=== PATIENT | female | born 1960 | race African-American/Black ===

== ENCOUNTER 2024-05-04 08:25 | Outpatient (CLI) | payer OTHER, SELFPAY ==
--- NOTE | ~2024-05-04 | MR_ITS ---
EXAMINATION: MR lumbar spine wo con DATE: 05/04/2024 09:48 INDICATION: Lumbar radiculopathy TECHNIQUE: Magnetic resonance imaging (MRI) of the lumbar spine was performed without intravenous con trast. Sequences included sagittal T2-weighted FSE, sagittal T2-weighted FS FSE, sagittal T1-weighted FSE, and axial T2-weighted FSE. COMPARISON: None FINDINGS: 3 mm anterolisthesis L5 on S1. Vertebral body heights are normal. Mild to moderate disc height loss a t T12-L1, L4-L5 and L5-S1 and mild disc height loss at T11-T12. There are fibrofatty degenerative end plate changes at each of these levels as well as along the anterior inferior endplates of L2 and L3. Marrow signal is otherwise unremarkable. The conus medullaris terminates at L1-L2. There is normal si gnal in the caudal spinal cord. Paravertebral soft tissues are unremarkable. The following disc level s are specifically discussed: T12-L1: The disc does not extend beyond the endplate margin. There is mild left and moderate right fa cet joint osteoarthritis. There is no neural foraminal stenosis. There is no central canal stenosis. L1-L2: The disc does not extend beyond the endplate margin. There is moderate bilateral facet joint o steoarthritis. There is minimal bilateral neural foraminal stenosis. There is no central canal stenos is. L2-L3: The disc does not extend beyond the endplate margin. There is moderate bilateral facet joint o steoarthritis. There is mild bilateral neural foraminal stenosis. There is no central canal stenosis. L3-L4: Disc is mildly bulging. There is moderate bilateral facet joint osteoarthritis. There is mild right and mild to moderate left neural foraminal stenosis. There is mild central canal stenosis. L4-L5: Disc is bulging. There is severe bilateral facet joint osteoarthritis. There is moderate left and moderate to severe right neural foraminal stenosis. There is mild central canal stenosis. L5-S1: Disc is bulging with annular fissure. There is severe left and moderate to severe right facet joint osteoarthritis. There is moderate bilateral neural foraminal stenosis. There is mild central ca nal stenosis. IMPRESSION: 1. Mild to moderate lumbar spondylosis. Reviewed, dictated and finalized at location B. LY REQUIREMENTS OFFICER
--- NOTE | ~2024-05-04 | MR_ITS ---
EXAMINATION: MR cervical spine wo con DATE: 05/04/2024 09:36 INDICATION: Cervical radiculopathy. TECHNIQUE: Magnetic resonance imaging (MRI) of the cervical spine was performed without intravenous c ontrast. COMPARISON: None FINDINGS: Alignment is normal. Vertebral body heights are normal. There is mildly decreased disc heig ht at C4-C5, moderately decreased disc height at C5-C6, and severely decreased disc height at C6-C7. The spinal cord signal intensity is normal. The following disc levels are specifically discussed: C2-C3: The disc does not extend beyond the endplate margin. There is mild left uncovertebral joint os teoarthritis. There is mild bilateral facet joint osteoarthritis. There is mild left neural foraminal stenosis. There is no central canal stenosis. C3-C4: There is a central protrusion. There is mild bilateral uncovertebral joint osteoarthritis. The re is severe right facet joint osteoarthritis. There is moderate right and mild left neural foraminal stenosis. There is no central canal stenosis. C4-C5: There is a left central extrusion. There is mild bilateral uncovertebral joint osteoarthritis. There is severe right and moderate left facet joint osteoarthritis. There is mild bilateral neural f oraminal stenosis. There is mild central canal stenosis. C5-C6: The disc is bulging. There is moderate right and severe left uncovertebral joint osteoarthriti s. There is severe bilateral facet joint osteoarthritis. There is mild right and moderate left neural foraminal stenosis. There is mild central canal stenosis. C6-C7: The disc is bulging. There is severe bilateral uncovertebral joint osteoarthritis. There is se patrick bilateral facet joint osteoarthritis. There is moderate bilateral neural foraminal stenosis. The re is mild central canal stenosis. C7-T1: The disc does not extend beyond the endplate margin. There is no uncovertebral joint osteoarth ritis. There is severe bilateral facet joint osteoarthritis. There is mild bilateral neural foraminal stenosis. There is no central canal stenosis. IMPRESSION: 1. Severe cervical spondylosis. Reviewed, dictated and finalized at location A. HANT TAILOR
--- OUTSIDE RECORDS SUMMARY | 2024-05-04 08:51 | XMS_ITS | Patient Health Summary ---
Author Organization [facility] Address [address] [place] [address] Care Team Providers Care Manager Global Name Role Phone Wyatt Ovalle MD Primary Care Provider [phone] [facility],non-owned Affiliates and Associated Physician Practices is amultiple site organization consisting of ambulatory clinics and hospital sitesin [place], [place], [place] and [place]. This disclosure is being madepursuant to the Care Everywhere program and may not contain all information available regarding this patient. Last updated 17.[facility] Allergies No known active allergies Medications * Be aware that medications may not be up to date on this document. Alwaysverify current medications with the patient. 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
--- OUTSIDE RECORDS SUMMARY | 2024-05-04 08:51 | XMS_ITS | Clinical Summary ---
Author Organization [facility] Address [address] [place] [address] Care Team Providers Care Water Ski Assembler Name Role Phone Junito Villalobos MD Unavailable [phone] Kerline Colvin NP Primary Care Provider [phone] Allergies Active Allergy Reactions Criticality Noted Date Comments Ibuprofen Nausea & Vomiting Low 10/20/2023 Medications atorvastatin (LIPITOR) 40 mg tablet Take 1 tablet (40 mg total) by mouth nightly 30 tablet 4 11/22/19 25 Active amLODIPine (NORVASC) 10 mg tablet Take 1 tablet (10 mg total) by mouth daily 30 tablet 4 11/23/19 25 Active olmesartan (BENICAR) 20 mg tablet Take 1 tablet (20 mg total) by mouth daily 30 tablet 4 11/17/19 25 Active aspirin 81 mg enteric coated tablet Take 1 tablet (81 mg total) by mouth daily 30 tablet 11/22/19 25 Active camphor-methyl salicyl-menthoL adhesive patch,medicated Apply topically nightly Active gabapentin (NEURONTIN) 300 mg capsuleIndicati ons:Chronic pain of both knees,Back pain of lumbar region with sciatica Take 1 capsule (300 mg total) by mouth 3 (three) times a day 270 capsule 5 06/21/19 25 Active traMADoL (ULTRAM) 25 mg tabletIndicatio ns:Chronic pain of both knees,Back pain of lumbar region with sciatica Take 1 tablet (25 mg total) by mouth every 8 (eight) hours as needed for pain 30 tablet 5 Active Active Problems Problem Noted Date Diagnosed Date Weakness due to acute cerebrovascular accident ( CVA) 03/29/2024 Assessment & Plan (03/29/2024 1:59 PM ELECTRICIAN SUBSTATION SUPERVISOR): - Chronic, not improving - Continue physical therapy - Continue follow-up with neurology as scheduled Back pain of lumbar region with sciatica 024 Assessment & Plan (03/29/2024 1:58 PM ELECTRICIAN SUBSTATION SUPERVISOR): - See chronic pain of knees plan Assessment & Plan (02/27/2024 4:32 PM ELECTRICIAN SUBSTATION SUPERVISOR): - Chronic, worsening - Obtain lumbar x-ray for further evaluation - Continue tramadol 25 mg every hours p.r.n. - Increase gabapentin to 300 mg t.i.d. - Encouraged use of ice alternating with heat frequently - May use zurq-gbz-otkkeux icy hot or Biofreeze - May add gicq-ryn-mixqpcm Tylenol 1000 mg every 6 hours as needed for pain - Continue with physical therapy - Refer to orthopedics for further evaluation Healthcare maintenance 01/19/2024 Assessment & Plan (01/19/2024 2:15 PM ELECTRICIAN SUBSTATION SUPERVISOR): - Discussed with patient current recommendations for annual screening(s) including pap smear every 3 years starting at age 21 until age 30, then every 5 years from age 30 until 65. Patients no longer need paps after age 65. Recommend annual mammograms starting at age 40. Recommend colon cancer screening with colonoscopy or DNA stool testing such as Cologuard starting at age 45. Bone density for postmenopausal status. Discussed diet, exercise, and importance of maintaining a healthy weight. - Pt declines due vaccinations including influenza, shingles, and Tdap - Labs to be obtained in April Tobacco abuse 01/19/2024 Assessment & Plan (01/19/2024 2:15 PM ELECTRICIAN SUBSTATION SUPERVISOR): - Chronic - Encouraged cessation - Counseled on ways to cut back and advised to call office if would like advice on methods and medications used to help quit smoking. This is a chronic problem and would always recommend reducing amount of smoking in hopes of quitting completely. Quitting smoking is one of the most important thing is you can do for your health. Contact to NOW or www.smokefree.gov for more information. Chronic pain of both knees 01/19/2024 Assessment & Plan (03/29/2024 1:58 PM ELECTRICIAN SUBSTATION SUPERVISOR): - Chronic, worsening - Continue tramadol 25 mg every hours p.r.n. - Continue gabapentin 300 mg t.i.d. - Encouraged use of ice alternating with heat frequently - May use qawr-ibv-wlsrxjz icy hot or Biofreeze - May add pzke-kqo-efywyye Tylenol 1000 mg every 6 hours as needed for pain - Continue with physical therapy - Refer to orthopedics for further evaluation - Patient currently on medical leave from work. Will extend leave paperwork through 07-29-2024. Assessment & Plan (02/27/2024 4:33 PM ELECTRICIAN SUBSTATION SUPERVISOR): - Chronic, worsening - Continue tramadol 25 mg every hours p.r.n. - Increase gabapentin to 300 mg t.i.d. - Encouraged use of ice alternating with heat frequently - May use btqf-hkw-atnujuw icy hot or Biofreeze - May add khlb-ala-szrmoxn Tylenol 1000 mg every 6 hours as needed for pain - Continue with physical therapy - Refer to orthopedics for further evaluation - Patient currently on medical leave from work. [employer] paperwork filled out to extend leave until March 30, 2024. Work excuse note completed and given to patient at visit today. Assessment & Plan (01/19/2024 2:16 PM ELECTRICIAN SUBSTATION SUPERVISOR): - Chronic, stable - Continue PT - Continue Tramadol 50 mg q8h PRN Essential tremor 12/21/2023 Assessment & Plan (03/29/2024 1:57 PM ELECTRICIAN SUBSTATION SUPERVISOR): - Chronic, mild improvement with gabapentin - Continue 300 mg t.i.d. - Continue follow-up with Neurology Assessment & Plan (01/19/2024 2:14 PM ELECTRICIAN SUBSTATION SUPERVISOR): - Chronic, stable - Monitor only for now - Follow up with neurology as needed TIA (transient ischemic attack) 11/21/2023 Assessment & Plan (01/19/2024 2:18 PM ELECTRICIAN SUBSTATION SUPERVISOR): - Improving - Doing well in physical therapy, continue per PT recommendations - Recommend resistance exercises at home as well - Work note provided at visit today - Leave paperwork updated per pt preference, scanned to media and faxed to [employer] Sialadenitis 12/18/2021 Dental caries 12/18/2021 Carpal tunnel syndrome of left wrist 12/03/2021 Assessment & Plan (01/19/2024 2:17 PM ELECTRICIAN SUBSTATION SUPERVISOR): - Chronic, stable - Continue Gabapentin 100 mg nightly. Pt does not want to increase dose due to risk for drowsiness Resolved Problems Problem Noted Date Diagnosed Date Resolved Date Pain and numbness of left upper extremity 12/03/2021 01/19/2024 Bronchitis 04/01/2020 09/17/2021 Encounters Date Type Department Care Team Description 04/20/2024 Telephone [facility] Family Medicine at [address] [address] Kerline Colvin NP 04/16/2024 Telephone [facility] at [address] [phone] Kerline Colvin NP 04/04/2024 Telephone [facility] at [address] [address] Kerline Colvin NP letter for FMLA; Medical Question/Miscellaneous 03/30/2024 Orders Only [facility] at [address] [phone] Kerline Colvin NP Weakness due to acute cerebrovascular accident (CVA) (HCC) (Primary Dx); TIA (transient ischemic attack); Carpal tunnel syndrome of left wrist; Polyneuropathy associated with underlying disease 03/29/2024 2:47 PM ELECTRICIAN SUBSTATION SUPERVISOR - 03/29/2024 11:59 PM ELECTRICIAN SUBSTATION SUPERVISOR Hospital Encounter [facility] [address] [place] [address] Encounter for screening mammogram for malignant neoplasm of breast Discharge Disposition: Discharge to home or self care 03/27/2024 Telephone [facility] at [address] [phone] Remy Allred MD Medical Question/Miscellaneous 03/22/2024 3:30 PM ELECTRICIAN SUBSTATION SUPERVISOR Office Visit [facility] at [address] [phone] Kerline Colvin NP Chronic pain of both knees (Primary Dx); Back pain of lumbar region with sciatica; Essential tremor; Weakness due to acute cerebrovascular accident (CVA) (HCC) 03/05/2024 Telephone [facility] at [address] [address] Remy Allred MD Forms Request; Medical Question/Miscellaneous 02/27/2024 3:32 PM ELECTRICIAN SUBSTATION SUPERVISOR - 02/27/2024 11:59 PM ELECTRICIAN SUBSTATION SUPERVISOR Hospital Encounter [facility] [address] [place] [id number] Back pain of lumbar region with sciatica Discharge Disposition: Discharge to home or self care 02/27/2024 3:00 PM ELECTRICIAN SUBSTATION SUPERVISOR Office Visit [facility] at [address] [phone] Kerline Colvin NP Back pain of lumbar region with sciatica (Primary Dx); Chronic pain of both knees from Last 3 Months Immunizations Immunization Administration Dates Next Due Influenza, Unspecified 11/28/2020,11/29/2019 Surgical History Surgery Date Site/Laterality Comments TOTAL ABDOMINAL HYSTERECTOMY Hysterectomy, total Medical History Medical History Date Comments TIA (transient ischemic attack) 11/21/2023 Family History Medical History Relation Name Comments Hypertension Other Family history of Hypertension; Relation Name Status Comments Other Social History Tobacco Use Types Packs/Day Years Used Date Smoking Tobacco: Every Day Cigarettes Smokeless Tobacco: Never Tobacco Cessation:Ready to Q uit: Not Asked; Counseling Given: Not Answered Alcohol Use Standard Drinks/Week Comments No 0 (1 standard drink = 0.6 oz pur e alcohol) AUDIT-C Answer Date Recorded Q1: How often do you have a drink containing alcohol? Never 03/22/2024 Q2: How many drinks containi ng alcohol do you have on a typical day when you are drinking? Patient does not drink Q3: How often do you have si x or more drinks on one occasion? Never 03/22/2024 PHQ-2 Answer Date Recorded PHQ-2 Total Score (If total score is 3 or more points, staff should administer the PHQ-9) 0 01/19/2024 PHQ-9 Answer Date Recorded PHQ-9 Total Score 1 01/19/2024 Personal Safety Answer Date Recorded Have you ever been in or are you currently in a harmful physical or emotional relationship or is someone making you feel afraid or unsafe? Denies 11/21/2023 Comments No Sex and Gender Information Value Date Recorded Sex Assigned at Not on file Legal Sex Female 12:22 PM ELECTRICIAN SUBSTATION SUPERVISOR Gender Identity Not on file Sexual Orientation Not on file Obstetrics History Para Term AB IAB SAB Ectopic Multiple Livin g Live Births 2 2 2 Date Outcome GA Total Labor Labor/2nd/3rd Weight Sex Type Anes PTL Catina A1 A5 Name Clin Term Term Last Filed Vital Signs Vital Sign Reading Time Taken Comments Blood Pressure 116/84 03/22/2024 3:17 PM ELECTRICIAN SUBSTATION SUPERVISOR Pulse 86 03/22/2024 3:17 PM ELECTRICIAN SUBSTATION SUPERVISOR Temperature 36.4 C (97.5 F) 03/22/2024 3:17 PM ELECTRICIAN SUBSTATION SUPERVISOR Respiratory Rate 18 03/22/2024 3:17 PM ELECTRICIAN SUBSTATION SUPERVISOR Oxygen Saturation 99% 03/22/2024 3:17 PM ELECTRICIAN SUBSTATION SUPERVISOR Inhaled Oxygen Concentration - - Weight 82.7 kg (182 lb 6.4 oz) 03/22/2024 3:17 P M ELECTRICIAN SUBSTATION SUPERVISOR Height 165.1 cm (5' 5 ) 03/22/2024 3:17 PM ELECTRICIAN SUBSTATION SUPERVISOR Body Mass Index 30.35 03/22/2024 3:17 PM ELECTRICIAN SUBSTATION SUPERVISOR Plan of Treatment Health Maintenance Due Date Last Done Comments Colon Cancer Screening-Colonoscopy 1961 DTaP/Tdap/Td Vaccine (1 - Tdap) 1972 Hepatitis B Screening 10/09/1979 Pneumococcal vaccine <65 (1 of 2 - PCV) 1980 Zoster Vaccine (1 of 2) 10/09/2011 Covid-19 Vaccine (3 - 2023-2 5 season) 2023 10/10/2020, 09/11/2020 Influenza Vaccine (#1) 2023 11/28/2020, 2019 Depression Screening 01/18/2025 01/19/2024, 01/19/2024, 12/03/2021, Additional history exists Regular Well Visit/Exam 18-64 01/18/2025 01/19/2024 Breast Cancer Screening-Mammogram 03/29/2025 025 Hepatitis C Screening Completed 04/15/2021 Procedures Procedure Name Priority Date/Time Associated Diagnosis Comments SCREENING MAMMOGRAM BILATERAL W MARIAELENA Schedule Routine, Read Routine (OP Routine) 03/29/2024 3:04 PM ELECTRICIAN SUBSTATION SUPERVISOR Encounter for screening mammogram for malignant neoplasm of breast XR SPINE LUMBAR 6 OR MORE VIEWS Schedule Routine, Read Routine (OP Routine) 02/27/2024 3:40 PM ELECTRICIAN SUBSTATION SUPERVISOR Back pain of lumbar region with sciatica HEPATITIS C ANTIBODY Routine 04/15/2021 8:51 AM ELECTRICIAN SUBSTATION SUPERVISOR Encounter for hepatitis C screening test for low risk patient from Last 3 Months or Most Recently Relevant to Health Maintenance Results * SCREENING MAMMOGRAM BILATERAL W MARIAELENA (03/29/2024 3:04 PM ELECTRICIAN SUBSTATION SUPERVISOR) Anatomical Region Laterality Modality Breast Bilateral Mammography 03/29/2024 4:18 PM ELECTRICIAN SUBSTATION SUPERVISOR Impressions 03/29/2024 4:18 PM ELECTRICIAN SUBSTATION SUPERVISOR There is no mammographic evidence to suggest malignancy. The patient may continue screening mammography as per ACR guidelines. FINAL ASSESSMENT: BI-RADS Category 1: Negative. Electronically signed by: Anita Zarate M.D. Narrative 03/29/2024 4:18 PM ELECTRICIAN SUBSTATION SUPERVISOR EXAMINATION: BILATERAL SCREENING MAMMOGRAM WITH TOMOGRAPHY HISTORY: Screening. COMPARISON(S): 2008 TECHNIQUE: Full-field 2D images and digital tomosynthesis images were obtained. CAD was utilized. BREAST PARENCHYMAL COMPOSITION: There are scattered areas of fibroglandular density. FINDINGS: There is been some degree of interval parenchymal atrophy. There are no suspicious masses. No suspicious calcifications are seen. There is no unexplained architectural distortion. There is no skin thickening seen. There are no mammographically abnormal lymph nodes seen in the axillae or elsewhere. us Kerline Colvin USED CAR RENOVATOR IMG MAMMO PROCEDURES Final Re sult * XR Spine Lumbar 6 or More Views (02/27/2024 3:40 PM ELECTRICIAN SUBSTATION SUPERVISOR) Anatomical Region Laterality Modality L-spine N/A Computed Radiogr aphy 02/28/2024 11:3 3 PM ELECTRICIAN SUBSTATION SUPERVISOR Narrative 02/28/2024 11:39 PM ELECTRICIAN SUBSTATION SUPERVISOR EXAM DESCRIPTION: XR SPINE LUMBAR 6 OR MORE VIEWS REASON FOR STUDY: back pain Increased pain in low back and both legs for 1 month, no injury TECHNIQUE: 6 radiographic view(s) of the lumbar spine. COMPARISON: Comparison CT lumbar 02/07/2006. FINDINGS: ALIGNMENT: Increasing degenerative anterolisthesis of L4 on L5 due to facet arthritis. No change in alignment with flexion or extension.. VERTEBRAE: Vertebral bodies of normal height. Significant facet arthritis at L4-5 and L5-S1 not well visualized on plain film. DISCS: Disc spaces are relatively maintained. Mild narrowing at L4-5. SOFT TISSUES: Vascular calcification. IMPRESSION: Increasing degenerative anterolisthesis of L4 on L5 due to facet arthritis. No change in alignment with flexion or extension. Significant facet arthritis at L4-5 and L5-S1. Recommend CT or MRI of the lumbar spine for further evaluation based upon clinical assessment. THIS IS AN ELECTRONICALLY VERIFIED FINAL REPORT 02/28/2024 11:39 PM - Electronically signed by Rose Barahona M.D. T: Report ID: [id number] Reading Location: [id number] Procedure Note Brenda Barahona MD - 02/28/2024 EXAM DESCRIPTION: XR SPINE LUMBAR 6 OR MORE VIEWS REASON FOR STUDY: back pain Increased pain in low back and both legs for 1 month, no injury TECHNIQUE: 6 radiographic view(s) of the lumbar spine. COMPARISON: Comparison CT lumbar 02/07/2006. FINDINGS: ALIGNMENT: Increasing degenerative anterolisthesis of L4 on L5due to facet arthritis. No change in alignment with flexion or extension.. VERTEBRAE: Vertebral bodies of normal height. Significant facet arthritisat L4-5 and L5-S1 not well visualized on plain film. DISCS: Disc spaces are relatively maintained. Mild narrowing at L4-5. SOFT TISSUES: Vascular calcification. IMPRESSION: Increasing degenerative anterolisthesis of L4 on L5 due tofacet arthritis. No change in alignment with flexion or extension. Significantfacet arthritis at L4-5 and L5-S1. Recommend CT or MRI of the lumbar spine for further evaluation based upon clinical assessment. THIS IS AN ELECTRONICALLY VERIFIED FINAL REPORT 02/28/2024 11:39 PM - Electronically signed by Rose SLAUGHTER T: Report ID: [id number] Reading Location: [place] [address] Kerline Colvin USED CAR RENOVATOR IMG XR PROCEDURES Final Resul t * Hepatitis C antibody (04/15/2021 8:51 AM ELECTRICIAN SUBSTATION SUPERVISOR) Hep C Ab Nonreactive Nonreactive NIGEL ARANGO Comment: Interpretive Data Nonreactive: Antibodies to HCV not detected. Does NOT exclude the possibility of recent exposure to HCV. Equivocal: Equivocal for HCV antibodies. Supplemental molecular testing will be automatically performed to determine infection status in accordance with current CDC screening recommendations. Reactive: Positive for HCV antibodies. This may represent current or past HCV infection. Supplemental molecular testing will be automatically performed to determine current infection status in accordance with current CDC screening recommendations. Interpretive data was last revised on 2019. Blood 04/15/2021 8:51 AM ELECTRICIAN SUBSTATION SUPERVISOR 04/15/2021 1:46 PM ELECTRICIAN SUBSTATION SUPERVISOR Remy Allred MD LAB MICROBIOLOGY - GENERAL OR DERABLES Edited Result - Final NIGEL ARANGO [id number] [place] [address] from Last 3 Months or Most Recently Relevant to Health Maintenance Insurance (Work) [address] [place] [phone] [facility] (Work) [address] [place] [address] [facility] [employer] (Work) [address] [place] [address] [facility] [employer] WORKERS COMPENSATION GENERIC Advance Directives For more information, please contact: [phone] * Full Code (Latest Code Status on File) Date Activated Date Inactivated Comments 11/21/2023 1:24 PM 11/22/2023 8:01 PM Care Teams Water Ski Assembler Relationship Specialty Start Date End Date Kerline Colvin NP [address] [place] [address] PCP - General Family Medicine 04/26/24 Junito Villalobos MD [address] [place] [address] Consulting Physician Neurology 11/22/23
--- OUTSIDE RECORDS SUMMARY | 2024-05-04 08:51 | XMS_ITS | CONTINUITY OF CARE DOCUMENT ---
Author Name cherelle villarreal Address Unknown Organization [facility] Address [address] [place] [address] Phone [phone] Care Team Providers Care Senior Sharepoint Developer Name Role Phone Cezar Hahn MD Unavailable [phone] Cezar Hahn MD Unavailable [phone] INSURANCE PROVIDERS Payer name Policy type / Coverage type [employer] red green party ID [facility] Blue [facility] [id number]
--- OUTSIDE RECORDS SUMMARY | 2024-05-04 08:51 | XMS_ITS | Clinical Summary ---
Author Organization [facility] Address [address] [place] [address] Phone Care Team Providers Care Tape Edge Machine Operator Name Role Phone Provider, None Primary Care Provider Unavailabl e Allergies No known active allergies Medications neomycin-polymy nu-dexamethaso ne (MAXITROL) 0.1 % Suspension Place 1 Drop in affected eye(s) 4 times daily. 5 mL 0 03/31/2015 Active pantoprazole (PROTONIX) 40 MG Tablet Delayed ResponseIndicat ions:Hematemesi s without nausea Take 1 Tab by mouth daily. 30 Tab 0 10/03/2015 Active Active Problems No known active problems Family History Medical History Relation Name Comments No Known Problems Brother Heart Disease Father Hypertension Mother No Known Problems Sister Relation Name Status Comments Brother Alive Father Alive Mother Sister Alive Social History Tobacco Use Types Packs/Day Years Used Date Smoking Tobacco: Every Day Tobacco Cessation:Ready to Q uit: No; Counseling Given: Yes Alcohol Use Standard Drinks/Week Comments Yes 0 (1 standard drink = 0.6 oz pur e alcohol) social drinker Comments No Sex and Gender Information Value Date Recorded Sex Assigned at Not on file Legal Sex Female 9:31 PM CDT Gender Identity Not on file Sexual Orientation Not on file Last Filed Vital Signs Vital Sign Reading Time Taken Comments Blood Pressure 159/99 03/29/2023 2:00 PM PLANETARIUM SKY SHOW TECHNICIAN Pulse 65 03/29/2023 2:00 PM PLANETARIUM SKY SHOW TECHNICIAN Temperature 36.2 C (97.1 F) 03/29/2023 12:17 PM PLANETARIUM SKY SHOW TECHNICIAN Respiratory Rate 18 03/29/2023 2:00 PM PLANETARIUM SKY SHOW TECHNICIAN Oxygen Saturation 99% 03/29/2023 2:00 PM PLANETARIUM SKY SHOW TECHNICIAN Inhaled Oxygen Concentration - - Weight 77.9 kg (171 lb 11.8 oz) 024 12:17 PM PLANETARIUM SKY SHOW TECHNICIAN Height 165.1 cm (5' 5 ) 03/29/2023 12:1 7 PM PLANETARIUM SKY SHOW TECHNICIAN Body Mass Index 28.58 03/29/2023 12:17 PM PLANETARIUM SKY SHOW TECHNICIAN Plan of Treatment Health Maintenance Due Date Last Done Comments Hepatitis C Virus (HCV) Screening 1960 Mammogram 1961 TdaP Immunization 1961 Pap Smear 1982 Cervical Cancer Screening (CCS) 10/09/1991 HPV/Cotest 10/09/1991 Colonoscopy 2006 Colorectal Cancer Screening 2006 Cologuard 10/09/2011 Immunochemical Fecal Occult Blood 10/09/2011 Pneumococcal Immunization (5 0+ years) (1 of 1 - PCV) 10/09/2011 Zoster Immunization (1 of 2) 10/09/2011 Influenza Immunization (#1) 2023 10/0 02/2020, 11/29/2019 SARS-COV-2 Immunization ( - 2023-25 season) 2023 Respiratory Syncytial Virus (RSV) Immunization (Adult) (1 - 1-dose 75+ series) 2036 Hepatitis B Immunization Aged Out No longer eligible based on patient's age to complete this topic Meningococcal Immunization (ACWY) Aged Out No longer eligible b ased on patient's age to complete this topic Rotavirus Immunization Aged Out No lo nger eligible based on patient's age to complete this topic Care Teams Tape Edge Machine Operator Relationship Specialty Start Date End Date Provider, None [place] PCP - General 03/29/23
--- OUTSIDE RECORDS SUMMARY | 2024-05-04 08:51 | XMS_ITS | Clinical Summary ---
Author Organization [facility] [employer] Address [address] [place] [address] Care Team Providers Care Wood Floor Refinisher Name Role Phone Wyatt Ovalle MD Primary Care Provider [phone] Source Comments [facility] [employer],non-owned Affiliates and Associated Physician Practices is amultiple site organization consisting of ambulatory clinics and hospital sitesin [place], [place], [place] and [place]. This disclosure is being madepursuant to the Care Everywhere program and may not contain all information available regarding this patient. Last updated 17.[facility] [employer] Allergies No known active allergies Medications * Be aware that medications may not be up to date on this document. Alwaysverify current medications with the patient. Medication Sig Dispensed Refills Start Date End Date Status methylPREDNISolone (MEDROL DOSEPAK) 4 MG tablet Take by mouth as directed 1 Each 02/08/2016 Active Encounters Date Type Department Care Team Description 04/18/2024 Travel from Last 3 Months Social History Tobacco Use Types Packs/Day Years Used Date Smoking Tobacco: Never Sex and Gender Information Value Date Recorded Sex Assigned at Not on file Gender Identity Not on file Sexual Orientation Not on file Last Filed Vital Signs Vital Sign Reading Time Taken Comments Blood Pressure 118/70 02/08/2016 10:21 AM CIVIL ENGINEERING PROFESSOR Pulse 86 02/08/2016 10:21 AM CIVIL ENGINEERING PROFESSOR Temperature 37.5 C (99.5 F) 02/08/2016 10:21 AM CIVIL ENGINEERING PROFESSOR Respiratory Rate - - Oxygen Saturation - - Inhaled Oxygen Concentration - - Weight 81.6 kg (180 lb) 02/08/2016 10:21 AM CIVIL ENGINEERING PROFESSOR Height 165.1 cm (5' 5 ) 02/08/2016 10:21 AM CIVIL ENGINEERING PROFESSOR Body Mass Index 29.95 02/08/2016 10:21 AM CIVIL ENGINEERING PROFESSOR Plan of Treatment Upcoming Encounters Date Type Department Care Team (Late st Contact Info) Description 05/23/2024 11:00 AM CDT Office Visit [facility] - Neurology [address] [facility] [place] [address] Radha Saab PA-C [address] [facility] [address] [place] [phone] Health Maintenance Due Date Last Done Comments COLOGUARD (AGES 45-75) - COL ON CA SCREENING 1961 COLON MONITORING 1961 COLONOSCOPY - COLON CA SCREENING 1961 CT COLONOGRAPHY - COLON CA SCREENING 1961 Colorectal Cancer Screening 1961 FIT - COLON CA SCREENING 1961 FLEX SIG - COLON CA SCREENING 1961 LIPID TESTING 1961 PAP SMEAR 1961 HIV SCREENING 1976 HEPATITIS C SCREENING 10/04/1979 DTAP/TDAP/TD VACCINES (1 - Tdap) 1980 PNEUMOCOCCAL VACCINE 50+ (1 of 1 - PCV) 10/09/2011 ZOSTER VACCINE (1 of 2) 10/09/2011 COVID-19 VACCINE ( - 2023-2 5 season) 2023 INFLUENZA VACCINE (#1) 2023 , 11/29/2019 DEPRESSION SCREENING 02/29/2024 MAMMOGRAM 03/29/2026 03/29/2024, 03/29/2024 Respiratory Syncytial Virus (RSV) Vaccine Pt: or over 60 yrs (1 - 1-dose 75+ series) 2036 HEPATITIS B VACCINE Aged Out No longe r eligible based on patient's age to complete this topic HIB VACCINE Aged Out No longer eligi ble based on patient's age to complete this topic HPV VACCINE Aged Out No longer eligi ble based on patient's age to complete this topic MENINGOCOCCAL (Group B) VACCINE Aged Out No longer eligible b ased on patient's age to complete this topic MENINGOCOCCAL VACCINE Aged Out No mary isabella eligible based on patient's age to complete this topic Care Teams Wood Floor Refinisher Relationship Specialty Start Date End Date Wyatt Ovalle MD PCP - General Internal Medicine 02/08/16
--- OUTSIDE RECORDS SUMMARY | 2024-05-04 08:51 | XMS_ITS | Referral Summary ---
Author Organization [facility] Address [address] [facility] [place] [address] Care Team Providers Care Steam Turbine Assembler Name Role Phone Wyatt Ovalle MD Primary Care Provider [phone] Source Comments [facility],non-owned Affiliates and Associated Physician Practices is amultiple site organization consisting of ambulatory clinics and hospital sitesin [place], [place], [place] and [place]. This disclosure is being madepursuant to the Care Everywhere program and may not contain all information available regarding this patient. Last updated 17.[facility] [employer] Encounters Date Type Department Care Team Description 04/18/2024 Travel from Last 3 Months Allergies No known active allergies Medications * Be aware that medications may not be up to date on this document. Alwaysverify current medications with the patient. Medication Sig Dispensed Refills Start Date End Date Status methylPREDNISolone (MEDROL DOSEPAK) 4 MG tablet Take by mouth as directed 1 Each 02/08/2016 Active Social History Tobacco Use Types Packs/Day Years Used Date Smoking Tobacco: Never Sex and Gender Information Value Date Recorded Sex Assigned at Not on file Gender Identity Not on file Sexual Orientation Not on file Last Filed Vital Signs Vital Sign Reading Time Taken Comments Blood Pressure 118/70 02/08/2016 10:21 AM DEMOLITION HAMMER OPERATOR Pulse 86 02/08/2016 10:21 AM DEMOLITION HAMMER OPERATOR Temperature 37.5 C (99.5 F) 02/08/2016 10:21 AM DEMOLITION HAMMER OPERATOR Respiratory Rate - - Oxygen Saturation - - Inhaled Oxygen Concentration - - Weight 81.6 kg (180 lb) 02/08/2016 10:21 AM DEMOLITION HAMMER OPERATOR Height 165.1 cm (5' 5 ) 02/08/2016 10:21 AM DEMOLITION HAMMER OPERATOR Body Mass Index 29.95 02/08/2016 10:21 AM DEMOLITION HAMMER OPERATOR Plan of Treatment Upcoming Encounters Date Type Department Care Team (Late st Contact Info) Description 05/23/2024 11:00 AM CDT Office Visit [facility] - Neurology [address] [facility] [place] [address] Radha Saab PA-C [address] [facility] [address] [place] [id number] Care Teams Steam Turbine Assembler Relationship Specialty Start Date End Date Wyatt Ovalle MD PCP - General Internal Medicine 02/08/16
--- OUTSIDE RECORDS SUMMARY | 2024-05-04 08:51 | XMS_ITS | Referral Summary ---
Author Organization [facility] Address [address] [place] [address] Care Team Providers Care Armament Mechanic Name Role Phone Junito Villalobos MD Unavailable Kerline Colvin NP Primary Care Provider [phone] Encounters Date Type Department Care Team Description 04/20/[address] [facility] Family Medicine at [address] [place] [phone] Kerline Colvin NP 04/16/[address] [facility] Family Medicine at [address] [place] [address] Kerline Colvin NP 04/04/[address] [facility] Medical [facility] Family Medicine at [address] [place] [phone] Kerline Colvin NP letter for FMLA; Medical Question/Miscellaneous 03/30/[address] [facility] Family Medicine at [address] [place] [phone] Kerline Colvin NP Weakness due to acute cerebrovascular accident (CVA) (HCC) (Primary Dx); TIA (transient ischemic attack); Carpal tunnel syndrome of left wrist; Polyneuropathy associated with underlying disease 03/29/2024 2:47 PM FROZEN FOODS MANAGER - 03/29/2024 11:59 PM FROZEN FOODS MANAGER Hospital Encounter [facility] [address] [place] [address] Encounter for screening mammogram for malignant neoplasm of breast Discharge Disposition: Discharge to home or self care 03/27/[address] [facility] Medical [facility] Family Medicine at [address] [phone] Remy Allred MD Medical Question/Miscellaneous 03/22/2024 3:30 PM FROZEN FOODS MANAGER Office Visit [facility] Family Medicine at [address] [phone] Kerline Colvin NP Chronic pain of both knees (Primary Dx); Back pain of lumbar region with sciatica; Essential tremor; Weakness due to acute cerebrovascular accident (CVA) (HCC) 03/05/2024 Telephone [facility] Medicine at [address] [phone] Remy Allred MD Forms Request; Medical Question/Miscellaneous 02/27/2024 3:32 PM FROZEN FOODS MANAGER - 02/27/2024 11:59 PM FROZEN FOODS MANAGER Hospital Encounter [facility] [address] [place] [phone] Back pain of lumbar region with sciatica Discharge Disposition: Discharge to home or self care 02/27/2024 3:00 PM FROZEN FOODS MANAGER Office Visit [facility] at [address] [phone] Kerline Colvin NP Back pain of lumbar region with sciatica (Primary Dx); Chronic pain of both knees from Last 3 Months Allergies Active Allergy Reactions Criticality Noted Date Comments Ibuprofen Nausea & Vomiting Low 10/20/2023 Medications atorvastatin (LIPITOR) 40 mg tablet Take 1 tablet (40 mg total) by mouth nightly 30 tablet 11/22/19 25 Active amLODIPine (NORVASC) 10 mg tablet Take 1 tablet (10 mg total) by mouth daily 30 tablet 11/23/19 25 Active olmesartan (BENICAR) 20 mg tablet Take 1 tablet (20 mg total) by mouth daily 30 tablet 4 11/17/19 25 Active aspirin 81 mg enteric coated tablet Take 1 tablet (81 mg total) by mouth daily 30 tablet 4 11/22/19 25 Active camphor-methyl salicyl-menthoL adhesive patch,medicated [...] 03/29/2024 Assessment & Plan (03/29/2024 1:59 PM FROZEN FOODS MANAGER): - Chronic, not improving - Continue physical therapy - Continue follow-up with neurology as scheduled Back pain of lumbar region with sciatica 024 Assessment & Plan (03/29/2024 1:58 PM FROZEN FOODS MANAGER): - See chronic pain of knees plan Assessment & Plan (02/27/2024 4:32 PM FROZEN FOODS MANAGER): - Chronic, worsening - Obtain lumbar x-ray for further evaluation - Continue tramadol 25 mg every hours p.r.n. - Increase gabapentin to 300 mg t.i.d. - Encouraged use of ice alternating with heat frequently - May use rnmc-tgm-hxtckfs icy hot or Biofreeze - May add ogbo-iox-eznjcou Tylenol 1000 mg every 6 hours as needed for pain - Continue with physical therapy - Refer to orthopedics for further evaluation Healthcare maintenance 01/19/2024 Assessment & Plan (01/19/2024 2:15 PM FROZEN FOODS MANAGER): - Discussed with patient current recommendations for [...] 01/19/2024 Assessment & Plan (01/19/2024 2:15 PM FROZEN FOODS MANAGER): - Chronic - Encouraged cessation - Counseled [...] can do for your health. Contact to [employer] or www.smokefree.gov for more information. Chronic pain of both knees 01/19/2024 Assessment & Plan (03/29/2024 1:58 PM FROZEN FOODS MANAGER): - Chronic, worsening - Continue tramadol 25 mg every hours p.r.n. - Continue gabapentin 300 mg t.i.d. - Encouraged use of ice alternating with heat frequently - May use brja-xky-wocoxrj icy hot or Biofreeze - May add pugw-luo-rwsmsbc Tylenol 1000 mg every 6 hours as needed for pain - Continue with physical therapy - Refer to orthopedics for further evaluation - Patient currently on medical leave from work. Will extend leave paperwork through 07-29-2024. Assessment & Plan (02/27/2024 4:33 PM FROZEN FOODS MANAGER): - Chronic, worsening - Continue tramadol 25 mg every hours p.r.n. - Increase gabapentin to 300 mg t.i.d. - Encouraged use of ice alternating with heat frequently - May use mxyx-ryx-dkwigno icy hot or Biofreeze - May add hlkq-pzn-jwvkeqa Tylenol 1000 mg every 6 hours as needed for pain - Continue with physical therapy - Refer to orthopedics for further evaluation - Patient currently on medical leave from work. [employer] paperwork filled out to extend leave until March 30, 2024. Work excuse note completed and given to patient at visit today. Assessment & Plan (01/19/2024 2:16 PM FROZEN FOODS MANAGER): - Chronic, stable - Continue PT - Continue Tramadol 50 mg q8h PRN Essential tremor 12/21/2023 Assessment & Plan (03/29/2024 1:57 PM FROZEN FOODS MANAGER): - Chronic, mild improvement with gabapentin - Continue 300 mg t.i.d. - Continue follow-up with Neurology Assessment & Plan (01/19/2024 2:14 PM FROZEN FOODS MANAGER): - Chronic, stable - Monitor only for now - Follow up with neurology as needed TIA (transient ischemic attack) 11/21/2023 Assessment & Plan (01/19/2024 2:18 PM FROZEN FOODS MANAGER): - Improving - Doing well in physical therapy, continue per PT recommendations - Recommend resistance exercises at home as well - Work note provided at visit today - Leave paperwork updated per pt preference, scanned to media and faxed to claim company Sialadenitis 12/18/2021 Dental caries 12/18/2021 Carpal tunnel syndrome of left wrist 12/03/2021 Assessment & Plan (01/19/2024 2:17 PM FROZEN FOODS MANAGER): - Chronic, stable - Continue Gabapentin 100 mg nightly. Pt does not want to increase dose due to risk for drowsiness Resolved Problems Problem Noted Date Diagnosed Date Resolved Date Pain and numbness of left upper extremity 12/03/2021 01/19/2024 Bronchitis 04/01/2020 09/17/2021 Immunizations Immunization Administration Dates Next Due Influenza, Unspecified 11/28/2020,11/29/2019 Social History Tobacco Use Types Packs/Day Years [...] on file Legal Sex Female 12:22 PM FROZEN FOODS MANAGER Gender Identity Not on file Sexual Orientation Not on file Last Filed Vital Signs Vital Sign Reading Time Taken Comments Blood Pressure 116/84 03/22/2024 3:17 PM FROZEN FOODS MANAGER Pulse 86 03/22/2024 3:17 PM FROZEN FOODS MANAGER Temperature 36.4 C (97.5 F) 03/22/2024 3:17 PM FROZEN FOODS MANAGER Respiratory Rate 18 03/22/2024 3:17 PM FROZEN FOODS MANAGER Oxygen Saturation 99% 03/22/2024 3:17 PM FROZEN FOODS MANAGER Inhaled Oxygen Concentration - - Weight 82.7 kg (182 lb 6.4 oz) 03/22/2024 3:17 P M FROZEN FOODS MANAGER Height 165.1 cm (5' 5 ) 03/22/2024 3:17 PM FROZEN FOODS MANAGER Body Mass Index 30.35 03/22/2024 3:17 PM FROZEN FOODS MANAGER Plan of Treatment Not on file Procedures Procedure Name Priority Date/Time Associated Diagnosis Comments SCREENING MAMMOGRAM BILATERAL W MARIAELENA Schedule Routine, Read Routine (OP Routine) 03/29/2024 3:04 PM FROZEN FOODS MANAGER Encounter for screening mammogram for malignant neoplasm of breast XR SPINE LUMBAR 6 OR MORE VIEWS Schedule Routine, Read Routine (OP Routine) 02/27/2024 3:40 PM FROZEN FOODS MANAGER Back pain of lumbar region with sciatica HEPATITIS C ANTIBODY Routine 04/15/2021 8:51 AM FROZEN FOODS MANAGER Encounter for hepatitis C screening test for low risk patient from Last 3 Months or Most Recently Relevant to Health Maintenance Results * SCREENING MAMMOGRAM BILATERAL W MARIAELENA (03/29/2024 3:04 PM FROZEN FOODS MANAGER) Anatomical Region Laterality Modality Breast Bilateral Mammography 03/29/2024 4:1 8 PM FROZEN FOODS MANAGER Impressions 03/29/2024 4:18 PM FROZEN FOODS MANAGER There is no mammographic evidence to suggest malignancy. The patient may continue screening mammography as per ACR guidelines. FINAL ASSESSMENT: BI-RADS Category 1: Negative. Electronically signed by: Anita Zarate M.D. Narrative 03/29/2024 4:18 PM FROZEN FOODS MANAGER EXAMINATION: BILATERAL SCREENING MAMMOGRAM WITH TOMOGRAPHY HISTORY: [...] the axillae or elsewhere. us Kerline Colvin NP IMG MAMMO PROCEDURES Final Re sult * XR Spine Lumbar 6 or More Views (02/27/2024 3:40 PM FROZEN FOODS MANAGER) Anatomical Region Laterality Modality L-spine N/A Computed Radiogr aphy 02/28/2024 11:3 3 PM FROZEN FOODS MANAGER Narrative 02/28/2024 11:39 PM FROZEN FOODS MANAGER EXAM DESCRIPTION: XR SPINE LUMBAR 6 OR [...] signed by Rose SLAUGHTER T: Report ID: [id number] Reading Location: [place] [address] Procedure Note Brenda Barahona MD - 02/28/2024 [...] signed by Rose SLAUGHTER T: Report ID: [id number] Reading Location: [place] [address] Kerline Colvin NP IMG XR PROCEDURES Final Resul t * Hepatitis C antibody (04/15/2021 8:51 AM FROZEN FOODS MANAGER) Hep C Ab Nonreactive Nonreactive NIGEL ARANGO [...] revised on 2019. Blood 04/15/2021 8:51 AM FROZEN FOODS MANAGER 04/15/2021 1:46 PM FROZEN FOODS MANAGER us Remy Allred MD LAB MICROBIOLOGY - GENERAL OR DERABLES Edited Result - Final N[address]EL [id number] [address] Department [place] [address] from Last 3 Months or Most Recently Relevant to Health Maintenance Insurance [facility] H[facility]/PPO Address: [facility] [address] [place] [address] [facility] [employer] [facility] [employer] WORKERS COMPENSATION GENERIC Advance Directives For more information, please contact: [phone] * Full Code (Latest Code Status on File) Date Activated Date Inactivated Comments 11/21/2023 1:24 PM 11/22/2023 8:01 PM Care Teams Armament Mechanic Relationship Specialty Start Date End Date Kerline Colvin NP [address] [facility] [address] [place] [address] PCP - General Family Medicine 04/26/24 Junito Villalobos MD [address] [place] [address] Consulting Physician Neurology 11/22/23
== END 2024-05-04 08:26 | disposition home or self-care (01) ==
LOC: ANHIMG 08:38
PROVIDERS: Visit Provider Physical Medicine & Rehabilitation Pain Medicine
DX: M47.816 Spondylosis without myelopathy or radiculopathy, lumbar region (principal); M47.812 Spondylosis without myelopathy or radiculopathy, cervical region
CPT/HCPCS: 72141; 72148